=== PATIENT | female | born 1965 | race Caucasian/White ===

== ENCOUNTER 2018-10-12 11:23 | Day surgery (SDC) | payer BC ==
[2018-10-11 10:10] VITALS: BMI 57.4
[~2018-10-12 11:23] MED LIST: ALBUTEROL NEB (CONC) 2.5 MG/0.5 ML INHALATION ONE; ATROPINE SULFATE 0.4 MG/ML 1 ML VIAL IM ONE; LACTATED RINGERS 1,000 ML IV SCH; LIDOCAINE 2% (PF) 20 MG/ML 10 ML AMP INHALATION ONE; LIDOCAINE VISCOUS 2% 15 ML CUP MUCOUS MEM ONE; SODIUM CHLORIDE 0.9% 1,000 ML IV SCH
[2018-10-12 11:48] VITALS: TEMP 97.8
[2018-10-12] MEDS ORDERED: LIDOCAINE 1% 20 ML VIAL (10MG/ML) FOR IV START INTRADERMA ONE (11:50)
[2018-10-12 12:08] LABS: Glucose,Whole Blood 106 mg/dL (75-99)
[2018-10-12] MEDS ORDERED: MIDAZOLAM 2 MG/2 ML VIAL ONE (12:34)
[2018-10-12] MEDS ORDERED: fentaNYL (PF) 50 MCG/ML 2 ML AMP ONE (12:34)
[2018-10-12] MEDS ORDERED: PROPOFOL 10 MG/ML 20 ML VIAL IV ONE (12:34)
[2018-10-12] MEDS ORDERED: LIDOCAINE 2% INJ 20 MG/ML IVP ONE (12:49)
--- NOTE | 2018-10-12 13:13 | PCN ---
PROCEDURE NOTE PROCEDURE: Bronchoscopy airway examination, therapeutic lavage, BAL. PREOPERATIVE DIAGNOSIS: Chronic cough. POSTOPERATIVE DIAGNOSIS: Chronic cough. OPERATORS: Dr. Huang and Dr. Waters. Ayad Trevizo CRNA provided general anesthesia/unconscious sedation. PROCEDURE: There was informed consent. There was universal timeout. The patient's procedure was done in room 1. After the patient was adequately sedated and being fully monitored, the bronchoscope was inserted through the right nostril. It passed through the right nasopharynx into the oropharynx. The hypopharynx was identified and topicalized. The hypopharyngeal structures appeared normal. There was some crowding of the hypopharyngeal structures. Anterior commissure, true cords, false cords, arytenoids, piriform sinuses, right and left vallecula and epiglottis appeared normal. After topicalization of the glottic opening, the bronchoscope was pushed through the glottic opening into the trachea. The trachea itself appeared normal. Tracheal hortencia was sharp. After evaluation of the tracheal hortencia, the right and left mainstem were topicalized. The right upper lobe and its 3 segments, right middle lobe and its 2 segments, right lower lobe and its 5 segments, left upper lobe proper and its 2 segments, the lingula and its 2 segments and the left lower lobe and its 4 segments had similar findings of very mild bronchitis. There was no mass or tumor. There was minimal to no secretions. There was no tracheobronchomalacia. There was no bleeding. The airways really looked quite normal. The bronchoscope was wedged into the right middle lobe. The BAL took place. The patient tolerated the procedure well. Roughly 30 mL of fluid was returned. The patient will be taken to the recovery area. I will speak to the patient afterwards. MMODL / IJN: [id number] /
[2018-10-12 13:16] VITALS: RESP 17
[2018-10-12 13:38] VITALS: BP 135/77; PULSE 74
[2018-10-12 18:00] LABS: Appearance,BF Clear; Color,BF Colorless; Nucleated Cells, Body Fluid 7 /uL; RBC, Body Fluid 123 /uL
== END 2018-10-12 13:46 | disposition home or self-care (01) ==
LOC: ORWHC2ENDO 11:23
PROVIDERS: ATTEND Internal Medicine Critical Care Medicine
DX: J42 Unspecified chronic bronchitis (principal); M19.90 Unspecified osteoarthritis, unspecified site; E03.9 Hypothyroidism, unspecified; E11.9 Type 2 diabetes mellitus without complications; Z87.01 Personal history of pneumonia (recurrent); Z79.84 Long term (current) use of oral hypoglycemic drugs; Z79.890 Hormone replacement therapy; Z79.899 Other long term (current) drug therapy; Z79.1 Long term (current) use of non-steroidal anti-inflammatories (NSAID); Z88.0 Allergy status to penicillin; Z88.2 Allergy status to sulfonamides
CPT/HCPCS: 87798 ×3; 87496; 87498; 87529; 88108; 88305; 89050; 87252; 87502; 87634; 87070; 87205; 87116; 87102; 87206; 31624; J2001; J2250; J3010; J2704

== ENCOUNTER → 2018-10-14 | Outpatient (CLI) | payer BC ==
--- NOTE | 2018-10-14 12:34 | CT ---
EXAMINATION TYPE: CT chest wo con DATE OF EXAM: 10/14/2018 COMPARISON: None HISTORY: Cough CT DLP: 941.7 mGycm. Automated Exposure Control for Dose Reduction was Utilized. TECHNIQUE: CT scan of the thorax is performed without IV contrast. FINDINGS: LUNGS: The lungs show some minimal subpleural interstitial densities at the lung bases. There is a ca lcified granuloma axial image 19 left lower lobe laterally. Interlobular pleural septal lines also no melanie. No evident bronchiectasis. Some minimal groundglass opacity present in the right middle and uppe r lobes. There is no pleural effusion or pneumothorax seen. The tracheobronchial tree is patent. MEDIASTINUM: Lack of IV contrast is noted to limit evaluation for mediastinal and especially hilar ad enopathy. There are no definitive greater than 1 cm hilar or mediastinal lymph nodes. No pericardia l effusion is seen. The heart is enlarged. Suspect a small hiatal hernia. OTHER: Liver shows low attenuation possibly due to hepatic steatosis, suspect the liver and spleen ar e enlarged. IMPRESSION: Mild interstitial lung disease. Indeterminate groundglass opacity right upper lobe, right middle lobe, there may be underlying alveolitis, airspace disease. GRANULOMATOUS DISEASE. Hepatosple nomegaly, hepatic steatosis.
--- NOTE | 2018-10-14 12:34 | CT ---
EXAMINATION TYPE: CT sinus wo con DATE OF EXAM: 10/14/2018 COMPARISON: NONE HISTORY: Chronic sinusitis and cough per order. Persistent cough per patient. CT DLP: 999.8 mGycm. Automated Exposure Control for Dose Reduction was Utilized. TECHNIQUE: CT scan of the sinuses is performed without contrast, axial images are obtained, coronal r eformatted images are also reviewed. FINDINGS: Exam noted suboptimal as entire inferior half of maxillary sinuses are not included. Repeat imaging was performed and included entire bilateral maxillary sinuses. The paranasal sinuses includi ng the frontal, ethmoid, sphenoid, and maxillary sinuses bilaterally are well-aerated without abnorma l opacification. The ostiomeatal complex is patent bilaterally on the coronal images. Some asymmetri c right-sided narrowing is noted. Nasal septum is slightly deviated to right of midline. Visualized portion of mastoid air cells show no abnormal opacification. The globes are intact bilate rally. Visualized portion of brain parenchyma is unremarkable. IMPRESSION: The sinuses are clear and the ostiomeatal complex is patent bilaterally.
== END | disposition home or self-care (01) ==
LOC: RADCTMAIN 11:19
PROVIDERS: ATTEND Internal Medicine Critical Care Medicine
DX: J84.9 Interstitial pulmonary disease, unspecified (principal); D71 Functional disorders of polymorphonuclear neutrophils; J32.9 Chronic sinusitis, unspecified; Z88.2 Allergy status to sulfonamides
CPT/HCPCS: 70486; 71250